=== PATIENT | female | born 1940 | race African-American/Black ===

== ENCOUNTER 2017-07-14 09:41 | Inpatient (IN) | payer MEDICARE, OTHER ==
[~2017-07-14] VITALS: Ht 157.5 cm; Wt 98.0 kg
--- NOTE | ~2017-07-14 | PROC ---
[address] [address] PROCEDURE REPORT Name: AIDEN LYNNE Room: [address] IN .R.#: [id number] Admission: 07/14/17 Attend Phys: Manas Her MD Discharge: 07/16/17 Date of : 38 Report #: [id number] THIS REPORT FOR: //name// For GI report, please see the Provation report in Perceptive 7 content. By: [id number] Records Staff JULIUS /YEN
[2017-07-14 09:45] VITALS: BP 144/73
[2017-07-14] MEDS ORDERED: HYDROCHLOROTH12.5 M1 PO (09:48)
[2017-07-14] MEDS ORDERED: LISINOPRIL5 MG PO (09:49)
[2017-07-14 10:14] LABS: ABSOLUTE EOSINOPHILS 0.1 thou/uL (0.0-0.7); ABSOLUTE LYMPHOCYTES 1.1 thou/uL (0.8-5.3); ABSOLUTE MONOCYTES 0.5 thou/uL (0.0-1.2); ABSOLUTE NEUTROPHILS 2.8 thou/uL (1.6-8.1); BASOPHILS 0.6 %; EOSINOPHILS 1.6 %; HEMATOCRIT 26.1 % (37.0-47.0); HEMOGLOBIN 8.2 gm/dL (12.0-15.0); LYMPHOCYTES 24.3 %; MCH 22.7 pg (26.0-34.0); MCHC 31.6 g/dL (28.0-37.0); MCV 72.1 fL (80.0-100.0); MONOCYTES 10.5 %; MPV 7.2 fl. (7.2-11.1); NUCLEATED RBCS 0 /100WBC; PLATELET COUNT* 373 thou/uL (150-400); RBC 3.62 mil/uL (4.20-5.00); RDW-CV 16.9 % (10.5-14.5); WBC 4.5 thou/uL (4.0-11.0)
[2017-07-14 10:23] LABS: APTT 26.9 Seconds (25.0-31.3); INR 1.1; PROTIME 10.5 Seconds (9.20-11.50)
[2017-07-14 10:29] LABS: ANION GAP 7 mmol/L (7-16); BUN 11 mg/dL (7-18); CALCIUM 8.7 mg/dL (8.5-10.1); CHLORIDE 104 mmol/L (98-107); CO2 30 mmol/L (21-32); GLUCOSE 111 mg/dL (70-99); POTASSIUM 3.7 mmol/L (3.5-5.1); SODIUM 141 mmol/L (136-145)
[2017-07-14 10:30] LABS: ANISOCYTOSIS 2+
[2017-07-14 10:31] LABS: HYPOCHROMASIA 1+; MICROCYTES 1+; OVALOCYTES 1+; PLATELET ESTIMATE ADEQUATE
[2017-07-14 10:37] LABS: ALBUMIN 3.4 g/dL (3.4-5.0); ALKALINE PHOSPHATASE 107 U/L (46-116); CK-MB MASS < 0.5 ng/mL (<0.5-3.6); LIPASE 102 U/L (73-393); MAGNESIUM 1.7 mg/dL (1.8-2.4); NT-PRO BRAIN NAT PEPTIDE 37 pg/mL (<300); SGOT 16 U/L (15-37); SGPT 14 U/L (30-65); TOTAL BILIRUBIN 0.3 mg/dL (<0.1-1.0); TOTAL PROTEIN 7.3 g/dL (6.4-8.2); TROPONIN-I LEVEL <0.06 ng/mL (<0.06)
[2017-07-14 13:30] VITALS: BP 109/77
[2017-07-14 14:49] VITALS: BP 129/54
--- NOTE | 2017-07-14 16:00 | NUR ---
RECEIVED REPORT FROM WALI DAWN IN ER. OK TRANSFERED TO TELE AT 1530. PT A&O X4. VSS. O2 SAT 100% ON 2L NC. ANIMAL PHYSIOLOGY TEACHER PLACED TRACING SR. ADMISSION HISTORY, ASSESSMENT AND EDUCATION COMPLETED CHARTED. PT ORIENTED TO ROOM, BED AND CALL LIGHT, PT COMMUNICATES UNDERSTANDING. PT REPORTS BURNING-LIKE PAIN THAT STARTS IN HER LEFT SHOULDER BLADE AND RADIATES DOWN HER BACK, 4/10. PT DENIES WANTING MEDICATION FOR PAIN, ONLY ASKING FOR MEDICATION FOR ANXIETY. MED REC PARTIALLY UPDATED - PT'S FAMILY TO BRING IN CURRENT MED LIST THIS EVENING. PT EATING AND DRINKING WITHOUT ISSUE. PT UP WITH STANDBY ASSIST TO THE BATHRROOM, STEADY ON FEET. FAMILY AT BEDSIDE. LOW FALL RISK PRECAUTIONS IN PLACE. CALL LIGHT IS WITHIN REACH. WILL CONTINUE TO MONITOR.
[2017-07-14] MEDS ORDERED: XANAX 0.5 MG0.5 MG PO (16:37)
[2017-07-14] MEDS ORDERED: AMBIEN 5 MG TABL5 M1 PO (16:37)
[2017-07-14 17:32] LABS: CALCIUM 8.4 mg/dL (8.5-10.1); CREATININE 0.9 mg/dL (0.6-1.3); MAGNESIUM 1.7 mg/dL (1.8-2.4); POTASSIUM 3.8 mmol/L (3.5-5.1)
--- NOTE | 2017-07-14 17:42 | EKG ---
[place] [address] ELECTROCARDIOGRAM REPORT Name: MAGEDAIDEN David Room: [address] ADM IN .R.#: [id number] Admission: 07/14/17 Attend Phys: Manas Her MD Discharge: Date of : 36 Report #: [id number] THIS REPORT FOR: //name// [facility] ED Test Date: 2017-07-14 Test Time: 09:46:03 Pat Name: AIDEN LYNNE Department: Room: [facility] Gender: Pharmaceutical Laboratory Technician: David SOLARES : 1940 Requested By: Yaya Lawrence Order Number: [id number] : Augie Orozco Measurements Intervals [place] Rate: 78 P: 43 [place]: 156 QRS: 0 QRSD: 106 T: 56 QT: 372 QTc: 424 Interpretive Statements Sinus rhythm Nonspecific T abnormalities, lateral leads No previous ECG available for comparison Electronically Signed On 07-14-2017 17:42:30 ORTHODONTIC ASSISTANT by Augie Orozco [email or web address] <ELECTRONICALLY SIGNED> By: Augie Orozco MD, [facility] 07/14/17 1742 5 5 Augie Orozco MD, FAC /EPI
[2017-07-14 20:00] VITALS: BP 99/55
[2017-07-15] VITALS: BP 93/49
--- NOTE | 2017-07-15 01:38 | NUR ---
ALERT AND ORIENTED X 4, SR ON MONITOR. NO FURTHER COMPLAINTS OF CHEST PAIN. GI TO CONSULT IN AM. PATIENT HAS BEEN RESTING WITHOUT COMPLAINTS. WILL PROCEED WITH CURRENT PLAN OF CARE AT THIS TIME.
[2017-07-15 04:00] VITALS: BP 110/49
[2017-07-15 05:38] LABS: ABSOLUTE EOSINOPHILS 0.1 thou/uL (0.0-0.7); ABSOLUTE LYMPHOCYTES 1.3 thou/uL (0.8-5.3); ABSOLUTE MONOCYTES 0.4 thou/uL (0.0-1.2); ABSOLUTE NEUTROPHILS 2.1 thou/uL (1.6-8.1); BASOPHILS 0.5 %; HEMATOCRIT 23.2 % (37.0-47.0); HEMOGLOBIN 7.3 gm/dL (12.0-15.0); LYMPHOCYTES 33.6 %; MCH 22.5 pg (26.0-34.0); MCHC 31.4 g/dL (28.0-37.0); MCV 71.7 fL (80.0-100.0); MPV 7.3 fl. (7.2-11.1); NUCLEATED RBCS 0 /100WBC; PLATELET COUNT* 318 thou/uL (150-400); POLYS 52.9 %; RBC 3.24 mil/uL (4.20-5.00); RDW-CV 16.9 % (10.5-14.5)
[2017-07-15 05:55] LABS: CALCIUM 8.4 mg/dL (8.5-10.1); CREATININE 0.9 mg/dL (0.6-1.3); POTASSIUM 3.8 mmol/L (3.5-5.1)
[2017-07-15 06:45] LABS: ANISOCYTOSIS 2+; MICROCYTES 2+; OVALOCYTES 1+; PLATELET ESTIMATE ADEQUATE
[2017-07-15 08:00] VITALS: BP 102/49
[2017-07-15 12:07] VITALS: BP 104/46
[2017-07-15 14:09] VITALS: BP 103/52; BP 111/54; BP 112/53; BP 116/63
--- NOTE | 2017-07-15 15:15 | NUR ---
VISITED WITH PT. SHE WAS ALERT AND ORIENTED. SHE STATED SHE LIVES ALONE. SHE IS INDEPENDENT AND ACTIVE. DOES NOT USE DME. NO HX OF HOME HEALTH OR SNF. CHILDREN ARE SUPPORTIVE. SHE DRIVES,COOKS,SHOPS ETC. SHE IS CONCERNED THAT SHE IS ON A 2 GM NA DIET. EXPLAINED MAY HAVE PUT HER ON THIS WHEN SHE CAME IN WITH CHEST PAIN. CM WILL FOLLOW.
--- NOTE | 2017-07-15 19:56 | NUR ---
RECEIVED REPORT. ASSUMED CARE OF PT AT 0730. PT A&O X4. VSS. O2 SAT 100% ON 2L PER NC. CONTINUOUS PULSE OX IN PLACE. LOGISTICS SERVICE REPRESENTATIVE IN PLACE TRACING SR. AM ASSESSMENT AND VITALS COMPLETED CHARTED. IV SALINE LOCKED. PT HAS GOOD APPETITE BUT IS HAVING TROUBLE EATING SOME FOODS DUE TO HER DENTURES BOTHERING HER. SOFT FOODS OFFERED. PT DENIED PAIN OR DISCOMFORT THROUGHOUT THE SHIFT, ONLY STATING "I JUST HAVE NO ENERGY". DR MILLER TALKED TO PT ABOUT ANEMIA AND HOW THIS CAN CAUSE FATIGUE, WEAKNESS, AND SOMETIMES CHEST DISCOMFORT. PT COMMUNICATES UNDERSTANDING. 1 UNIT OF PR[facility]'S TRANSFUSED PER DR BROWN; PT HAD NO ADVERSE REACTIONS. PT TO BE NPO AFTER MIDNIGHT FOR EGD TOMORROW PER DR MIGUEL. PT AWARE AND AGREEABLE TO PROCEDURE. PT UP ADLIB TO BATHROOM; VOIDING WITHOUT ISSUE. FAMILY AT BEDSIDE OFF AND ON THROUGHOUT SHIFT. LOW FALL RISK PRECAUTIONS IN PLACE. CALL LIGHT IS WITHIN REACH. HOURLY ROUNDING PERFORMED.
[2017-07-15 20:00] VITALS: BP 128/47
[2017-07-16] VITALS: BP 108/53; BP 129/66
[2017-07-16 04:00] VITALS: BP 100/44; BP 141/79
--- NOTE | 2017-07-16 04:24 | NUR ---
ASSUMED PT CARE AT 1930, PT IS A&OX4, PT IS TRACING NSR ON THE MONITOR, ON RA SATTING MID OT HIGH 90'S. PT DENIES ANY PAIN OR NEEDS AT THIS TIME. PT IS NPO AT THIS TIME FOR PENDING EGD IN THE AM. PT REQUESTED A SLEEPIN MEDICATION AND HAS SLEPT THROUGHOUT THE NIGHT, BED IN LOW POSITION, CALL LIGHT IN REACH, BED ALARM ON, DUE TO SLEEPING MEDICATION GIVEN. PT GIVEN VERBAL EDUCATION, ON NEED FOR BED ALARM. HOURLY ROUNDING COMPLETED FOR PT SAFETY.
[2017-07-16 05:22] LABS: ABSOLUTE EOSINOPHILS 0.2 thou/uL (0.0-0.7); ABSOLUTE LYMPHOCYTES 1.5 thou/uL (0.8-5.3); ABSOLUTE MONOCYTES 0.6 thou/uL (0.0-1.2); ABSOLUTE NEUTROPHILS 4.6 thou/uL (1.6-8.1); BASOPHILS 0.7 %; EOSINOPHILS 3.6 %; HEMATOCRIT 26.8 % (37.0-47.0); HEMOGLOBIN 8.6 gm/dL (12.0-15.0); LYMPHOCYTES 21.7 %; MCH 23.9 pg (26.0-34.0); MCV 74.8 fL (80.0-100.0); MONOCYTES 8.9 %; NUCLEATED RBCS 0 /100WBC; PLATELET COUNT* 321 thou/uL (150-400); POLYS 65.1 %; RBC 3.58 mil/uL (4.20-5.00); RDW-CV 17.4 % (10.5-14.5)
[2017-07-16 05:59] LABS: HYPOCHROMASIA 1+; OVALOCYTES 1+; PLATELET ESTIMATE ADEQUATE
[2017-07-16 06:00] LABS: ANISOCYTOSIS 1+; MICROCYTES Occasional; POIKILOCYTOSIS 1+
[2017-07-16 06:01] LABS: CALCIUM 8.6 mg/dL (8.5-10.1); POTASSIUM 3.9 mmol/L (3.5-5.1)
[2017-07-16 08:45] VITALS: BP 118/60
--- NOTE | 2017-07-16 08:45 | NUR ---
ASSUMED PT. CARE AND RECEIVED REPORT AT 0730. PT A/OX4, VSS, MONITOR ON TRACING SR. PT. DENIES CURRENT PAIN/SOB. ON RA @ 100%. PT. HAS CONTINUOUS PULSE OX ON, OKAY TO DC PER DR. MILLER. FULL ASSESSMENT COMPLETED, REFER TO CHARTING. PT. NPO FOR EGD TODAY AT 1300. PT. FRUSTRATED WITH NPO STATUS. FAMILY AT BEDSIDE, WILL CONTINUE WITH PLAN OF CARE.
--- NOTE | 2017-07-16 13:57 | NUR ---
PT. RETURNED FROM PACU. OKAY TO DC ONCE RECEIVED IRON AND B12. NO SET DOSE ON ORDERS. DR. PHAM NOTIFIED AND STATED TO HAVE HEM/OC SET DOSE/ORDERS.
[2017-07-16 16:00] VITALS: BP 110/50
[2017-07-16 19:57] VITALS: BP 111/61
[2017-07-16 19:59] VITALS: BP 111/61
[2017-07-16] MEDS ORDERED: B-12 INJECTIONS IM (20:04)
--- NOTE | 2017-07-16 21:56 | NUR ---
ASSUMED PT CARE AT 1930, PT IS A&OX4, PT OFF THE MONITOR AT THIS TIME. PT IS TO BE DISCHARGED SOON HER IRON INFUSION IS COMPLETED. DISCHARGED PAPER WORK TYPED COMPLTED BY DAY RN, THIS RN WENT OVER DISCHARGE PAPERWORK WITH PT AND DAUGHTER, DURING THIS PROCESS, IT BECAME KNOWN THAT PT DID NOT HAVE AN AMBIEN RX AT HOME, THIS RN CALLED THE MANAGER OFFICE DR TO SEE IF THEY WOULD BE ABLE TO CALL IT INTO HER PHARMACY OF CHOICE, OUR PHYSICIAN DECLINED. FAMILY WAS NOTIFIED. PT WAS DISCHARGED AT 2129, IV DISCONTINUED, TELE MONITOR OFF, AND PT ESCORTED OUT OF FACILITY WITH STAFF MEMBER AND FAMILY MEMBER AND ALL BELONGINGS AT THIS TIME.
--- NOTE | 2017-07-17 13:28 | CON ---
[address] [address] CONSULTATION Name: AIDEN LYNNE Room: [address] IN M.R.#: [id number] Admission: 07/14/17 Attend Phys: Manas Her MD Discharge: 07/16/17 Date of : 36 Report #: [id number] THIS REPORT FOR: //name// CC: Manas Sousa DATE OF SERVICE: 07/14/2017 HISTORY OF PRESENT ILLNESS: The patient is a 76-year-old single black female who last seen in the Emergency Room today after she complained of chest pain. The patient has no previous history of heart disease. She apparently had a stress test years ago. She is not very active because of her age and size. She is 5 feet 2 inches and weighs 210 pounds. She notes she previously weighed close to 300 pounds, but had gastric bypass in ____ [place] years ago. She notes that last night she was walking from her car [place] when she felt short of breath. She then went home last night, lay down in bed. She could not sleep all night. She does have discomfort on the left side of her upper chest, her left shoulder as well as her left shoulder blade. It persisted throughout the night. This morning, she felt weak and unsteady on her feet. She came to the Emergency Room and was admitted. She denied the pain radiating to her jaw. There was no associated shortness of breath or diaphoresis. The pain was not related to food. She had no belching, fever or cough. She has had no blood in stool. Denied any trauma to her chest. No rash. She notes occasional episodes where heart rate will increase, but she has had no syncope. PAST MEDICAL HISTORY: Significant for hysterectomy, cataract surgery, hypertension, glucose intolerance. MEDICATIONS: Include lisinopril, hydrochlorothiazide. ALLERGIES: She has no known drug allergies. FAMILY HISTORY: She had an aunt who had heart attack. SOCIAL HISTORY: She is , lives with son here in [place]. Quit smoking years ago. No alcohol abuse. REVIEW OF SYSTEMS: She has had no history of stroke, asthma, peptic ulcer disease, liver disease, kidney disease, cancer or psychiatric illness. She has arthritis in her knee. PHYSICAL EXAMINATION: GENERAL: Revealed an elderly female lying in bed. She appeared in no distress. VITAL SIGNS: She had a blood pressure of 140/70, pulse 70. [place] [address] CONSULTATION Name: AIDEN LYNNE Room: [address]#: [id number] Admission: 07/14/17 Attend Phys: Manas Her MD Discharge: 07/16/17 Date of : 36 Report #: [id number] HEENT: She was anicteric, conjunctiva pink. Mucous membranes moist. NECK: Veins were nondistended. No carotid bruits. Neck supple. CHEST: Clear to auscultation. CARDIAC: Regular rate and rhythm without murmur. ABDOMEN: Obese, soft, nontender. EXTREMITIES: Had no edema. Dorsalis pedis pulse 2+ in the left, cannot be palpated in the right. SKIN: Cool and dry. NEUROLOGIC: Nonfocal. LYMPH: No adenopathy. MUSCULOSKELETAL: No joint effusion. DIAGNOSTIC DATA: Her ECG this morning showed a sinus rhythm. There was no ST or T-wave change noted. Her workup in the Emergency Room today, she had portable chest x-ray that showed normal heart size, clear lung carreon. CT scan of the chest using a PE protocol today showed cardiomegaly, no pulmonary embolus, no aortic dissection, small lung nodule, sludge in the gallbladder, no adenopathy, gallstone noted. LABORATORY DATA: Sodium 141, creatinine 1, glucose 111. Troponin 0.06. BNP 37. TSH 1.8. White blood cell count 4.5, hemoglobin 8.2. Her ferritin is 5, percent saturation is only 6%. IMPRESSION AND RECOMMENDATIONS: 1. Chest pain. Atypical for angina. Suspect noncardiac. Recommend no cardiac workup. 2. Hypertension. The patient is on an JEFF inhibitor and diuretic. 3. Iron deficiency anemia. Rule out GI blood loss. 4. History of obesity. Previous gastric bypass. 5. Degenerative joint disease. <ELECTRONICALLY SIGNED> By: Augie Orozco MD, FACC 07/17/17 1328 1353 [id number] Orozco MD, FACC /nt
--- NOTE | 2017-07-24 13:57 | CON ---
[address] [address] CONSULTATION Name: AIDEN LYNNE Room: [address] IN M.R.#: [id number] Admission: 07/14/17 Attend Phys: Manas Her MD Discharge: 07/16/17 Date of : 36 Report #: [id number] THIS REPORT FOR: //name// CC: Manas Sousa DATE OF SERVICE: 07/16/2017 REQUESTING PHYSICIAN: Dr. Montalvo. REASON FOR CONSULTATION: Iron-deficiency anemia and B12 deficiency anemia. HISTORY OF PRESENT ILLNESS: The patient is a pleasant 76-year-old woman with a history of gastric bypass surgery who has been receiving subQ iron injections for B12 deficiency in the past. She also states that she has had IV iron infusion once. She was admitted to the hospital now with chest pain, but was found to have anemia. GI consult was obtained. Dr. Montalvo recommended parenteral iron treatment and B12 treatment for iron deficiency anemia and B12 deficiency anemia. Hematology consult is requested. The patient is doing well. She does not have melena or hematochezia. Denies tingling or numbness in the extremities. Denies weight loss. PAST MEDICAL HISTORY: Significant for hypertension, hysterectomy, gastric bypass surgery and history of B12 deficiency. SOCIAL HISTORY: Quit smoking 30 years ago and does not drink alcohol excessively. PHYSICAL EXAMINATION: GENERAL: Reveals well-developed, well-nourished -[place] woman, not in acute distress. VITAL SIGNS: Blood pressure 118/60, heart rate is 61, temperature 98.2 and respirations 18. HEENT: Does not reveal thrush. HEART: Normal S1 and S2. LUNGS: Clear. ABDOMEN: Soft. No organomegaly. EXTREMITIES: No edema. LABORATORY DATA: White count 7.0, hemoglobin 8.6, platelets 321, MCV 74.8 and RDW 17.2. Ferritin 5 and B12 is 215. ASSESSMENT AND PLAN: Iron deficiency anemia. The patient has a history of gastric bypass. She had EGD today, which showed normal Billroth 2 gastrojejunostomy. Agree with the patient's parenteral B12 and iron infusion treatment. Planning to order INFeD 500 mg IV and B12 [address] [place] [address] CONSULTATION Name: AIDEN LYNNE Room: [address]#: [id number] Admission: 07/14/17 Attend Phys: Manas Her MD Discharge: 07/16/17 Date of : 36 Report #: [id number] recommend the patient to continue follow up with program management intern. She is interested. She will Dr. Castro in 2 weeks. Thank you very much for allowing me to participate in the care of this patient. <ELECTRONICALLY SIGNED> By: Kirstin Garcia MD 07/24/17 1357 1438 034MD margarita Dao
--- NOTE | 2017-08-02 17:57 | CON ---
[address] [address] CONSULTATION Name: AIDEN LYNNE Room: [address] IN M.R.#: [id number] Admission: 07/14/17 Attend Phys: Manas Her MD Discharge: 07/16/17 Date of : 36 Report #: [id number] THIS REPORT FOR: //name// CC: Manas Garcia MD DATE OF SERVICE: 07/15/2017 REFERRING PHYSICIAN: Manas Her M.D. REASON FOR CONSULTATION: Anemia. IMPRESSION: 1. Iron-deficiency anemia, most likely related to previous gastric bypass - evaluate for complications related to nonsteroidal use. 2. Chest pain and shortness of breath secondary to worsening anemia. RECOMMENDATIONS: 1. In reviewing the patient's records, she has had multiple endoscopies by my partner over the last several years. Due to history of gastric bypass, she is probably unable to absorb both iron and B12 through her GI tract. However, she has never been seen by a beer maker nor did she ever recall having got iron infusions or B12 shots. In any event, due to her worsening anemia, since she takes intermittent nonsteroidals, I have recommended she undergo an upper endoscopy to ensure that she does not have any anastomotic ulcer, but to hold off on doing colonoscopy, since her last one that was done less than 5 years ago was unremarkable. 2. We will consult Dr. Kirstin Garcia for parenteral iron infusions that I would like to be initiated while she is in the hospital. 3. We would also recommend that the patient begin on sublingual B12 on a daily basis and if she has poor results from the same, she may need parenteral B12. 4. Once she has had upper endoscopy and has seen Dr. Garcia to arrange for iron infusions, I expect she will be able to go home in the next day or two. 5. I have discussed the plans with the patient and her son and they are agreeable to the same. HISTORY OF PRESENT ILLNESS: The patient is a very pleasant 77-year-old white female who is admitted to the hospital with complaints of chest pain and shortness of breath and found to be markedly anemic. She has not been feeling well, at this point in time, without really any history to suggest any overt GI bleeding. She had a previous gastric bypass back in 2006, but never had any problems with being anemic or have any problems related to the same. She does take intermittent nonsteroidals. She denies any problems referable to [facility] [place] [address] CONSULTATION Name: AIDEN LYNNE Room: [address] IN M.R.#: [id number] Admission: 07/14/17 Attend Phys: Manas Her MD Discharge: 07/16/17 Date of : 36 Report #: [id number] lower GI tract otherwise. She is admitted in the hospital for further evaluation and treatment. ALLERGIES: None. MEDICATIONS: Include zolpidem, alprazolam, hydrochlorothiazide, lisinopril and she does take intermittent ibuprofen. PAST MEDICAL HISTORY: Remarkable for hypertension. She has had a previous gastric bypass, hysterectomy and she had previous upper and lower endoscopies as well. SOCIAL HISTORY: The patient quit smoking 30 years ago and rarely drinks alcohol. FAMILY HISTORY: Negative. PHYSICAL EXAMINATION: GENERAL: Pleasant 77-year-old white female who is awake and alert. CARDIOPULMONARY EXAMINATION: Revealed a regular rate and rhythm. LUNGS: Clear. ABDOMEN: Soft, not tender. No rebound or guarding noted. DISCUSSION: At the present time, the patient has marked anemia. We will proceed with upper endoscopy tomorrow and make further recommendations thereafter. <ELECTRONICALLY SIGNED> By: Carlitos Montalvo DO 08/02/17 1757 1702 [id number] Montalvo DO /nt
== END 2017-07-16 22:02 | disposition home or self-care (01) | DRG 812 ==
LOC: M.ERS 09:41 → M.2W 11:05 → M.TBA-ER 11:05 → M.2W 15:32
PROVIDERS: Emergency Medicine; Internal Medicine Gastroenterology; ADMIT Internal Medicine
PROC: 30233N1 Transfusion of Nonautologous Red Blood Cells into Peripheral Vein, Percutaneous Approach (ICD-10-PCS; principal; 2017-07-15)
PROC: 0DJ08ZZ Inspection of Upper Intestinal Tract, Via Natural or Artificial Opening Endoscopic (ICD-10-PCS; 2017-07-16)
DX: D50.9 Iron deficiency anemia, unspecified (principal); I10 Essential (primary) hypertension; I20.9 Angina pectoris, unspecified; M19.90 Unspecified osteoarthritis, unspecified site; K80.80 Other cholelithiasis without obstruction; K91.1 Postgastric surgery syndromes; Z87.891 Personal history of nicotine dependence; Z90.710 Acquired absence of both cervix and uterus; Z82.49 Family history of ischemic heart disease and other diseases of the circulatory system; Z98.49 Cataract extraction status, unspecified eye; Z98.84 Bariatric surgery status; Z79.899 Other long term (current) drug therapy

== ENCOUNTER → 2018-03-29 | Outpatient (CLI) | payer MEDICARE, OTHER ==
[~2018-03-29] MED LIST: AMBIEN 5 MG TABL5 M1 PO; B-12 INJECTIONS IM; HYDROCHLOROTH12.5 M1 PO; LISINOPRIL5 MG PO; XANAX 0.5 MG0.5 MG PO
== END ==
LOC: M.NUC 03-24 12:22 → M.RAD 10:03 → M.NUC 10:15
DX: Z12.31 Encounter for screening mammogram for malignant neoplasm of breast (principal); R79.9 Abnormal finding of blood chemistry, unspecified

== ENCOUNTER 2021-04-16 09:49 | Emergency (ER) | payer MEDICARE, OTHER ==
[~2021-04-16] VITALS: Ht 157.5 cm; Wt 90.7 kg
[2021-04-16 11:03] LABS: HEMOGLOBIN 9.5 gm/dL (12.0-15.0)
[2021-04-16 11:07] LABS: HEMATOCRIT 29.5 % (37.0-47.0); MCH 26.5 pg (26.0-34.0); MCHC 32.4 g/dL (28.0-37.0); MPV 7.6 fl. (7.2-11.1); NUCLEATED RBCS 0 /100WBC; RDW-CV 14.7 % (10.5-14.5); WBC 14.3 thou/uL (4.0-11.0)
[2021-04-16 11:42] LABS: CALCIUM 9.2 mg/dL (8.5-10.1); CREATININE 1.2 mg/dL (0.6-1.3)
[2021-04-16 11:53] LABS: ALBUMIN 2.2 g/dL (3.4-5.0); TOTAL BILIRUBIN 0.4 mg/dL (<0.1-1.0); TOTAL PROTEIN 7.6 g/dL (6.4-8.2)
[2021-04-16 12:09] LABS: PLATELET COUNT* 158 thou/uL (150-400)
[2021-04-16 12:10] LABS: ABSOLUTE NEUTROPHILS 12.3 thou/uL (1.6-8.1)
[2021-04-16 12:32] LABS: URINE BILIRUBIN NEGATIVE (Negative); URINE BLOOD NEGATIVE (Negative); URINE CLARITY CLEAR; URINE COLOR YELLOW; URINE GLUCOSE-RANDOM NEGATIVE (Negative); URINE KETONES NEGATIVE (Negative); URINE LEUKOCYTES-REFLEX NEGATIVE (Negative); URINE NITRITE-REFLEX NEGATIVE (Negative); URINE PROTEIN NEGATIVE (Negative)
[2021-04-16] MEDS ORDERED: KLOR-CON M2020 MEQ PO (14:19)
--- NOTE | 2021-04-16 14:52 | EKG ---
[place] [address] ELECTROCARDIOGRAM REPORT Name: TORIBIO LYNNEIS David Room: [facility]#: [id number] Admission: 04/16/21 Attend Phys: Discharge: Date of : 36 Date of Service: 04/16/21 1055 Report #: [id number] THIS REPORT FOR: //name// [facility] ED Test Date: 2021-04-16 Test Time: 10:55:58 Pat Name: AIDEN LYNNE Department: Room: Gender: F Bead Filler: TJRogelio : 1940 Requested By: Sonny Olmos Order Number: [id number] MD: Augie Orozco Measurements Intervals [place] Rate: 76 P: 33 [place]: 136 QRS: -21 QRSD: 88 T: 16 QT: 421 QTc: 474 Interpretive Statements Sinus rhythm Borderline left axis deviation Low voltage, precordial leads Borderline T abnormalities, anterior leads Baseline wander in lead(s) II,III,aVR,aVL,aVF Compared to ECG 07/14/2017 09:46:03 Low QRS voltage now present T-wave abnormality still present Electronically Signed On 04-16-2021 14:52:08 [employer] TECHNICIAN by Augie Orozco [email or web address] <ELECTRONICALLY SIGNED> By: Augie Orozco MD, FACC 04/16/21 1452 1055 1055 Augie Orozco MD, FAC /EPI
[2021-04-16 16:43] VITALS: BP 129/46
== END 2021-04-16 16:44 | disposition home or self-care (01) ==
LOC: M.ERS 09:49
PROVIDERS: Family Medicine
DX: E87.6 Hypokalemia (principal); R11.2 Nausea with vomiting, unspecified; E11.9 Type 2 diabetes mellitus without complications; I10 Essential (primary) hypertension; Z90.710 Acquired absence of both cervix and uterus; Z79.899 Other long term (current) drug therapy; Z87.891 Personal history of nicotine dependence